=== PATIENT | female | born 1955 | race Caucasian/White ===

== ENCOUNTER 2021-02-28 07:42 | Outpatient (CLI) | payer MEDICARE | END 2021-02-28 23:59 | disposition home or self-care (01) | LOC: ROC 07:42 | PROVIDERS: ATTEND Radiology Radiation Oncology | DX: C20 Malignant neoplasm of rectum (principal) | CPT/HCPCS: G0463 ==

== ENCOUNTER 2021-03-14 08:13 | Outpatient (CLI) | payer MEDICARE | END 2021-03-14 23:59 | disposition home or self-care (01) | LOC: ROC 08:13 | PROVIDERS: ATTEND Radiology Radiation Oncology | DX: C21.8 Malignant neoplasm of overlapping sites of rectum, anus and anal canal (principal) | CPT/HCPCS: G0463 ==